=== PATIENT | female | born 1990 | race Caucasian/White ===

== ENCOUNTER → 2017-04-21 18:09 | Outpatient (REF) | payer MEDICAID, SELFPAY | LOC: LAB 18:09 | PROVIDERS: Visit Provider Nurse Practitioner Obstetrics & Gynecology | DX: Z34.90 Encounter for supervision of normal pregnancy, unspecified, unspecified trimester (principal) | CPT/HCPCS: 86403 ==

== ENCOUNTER 2017-05-18 05:24 | Inpatient (IN) | payer MEDICAID, SELFPAY ==
[2017-05-18] VITALS (10 sets, daily range): BP systolic 112–128; BP diastolic 57–69; PULSE 61–88; RESP 16–18; TEMP 36.3–36.9; O2SAT 97–100; BMI 28.3
[2017-05-18 06:09] LABS: Basophils # 0.1 K/mm3 (0-0.2); Basophils % 0.6 % (0.1-2.0); Eosinophils # 0.3 K/mm3 (0.0-0.4); Eosinophils % 2.3 % (0.1-12.0); Hematocrit 35.5 % (37.0-47.0); Hemoglobin 12.1 g/dL (12.2-16.2); Lymphocytes # 3.4 K/mm3 (0.7-4.5); Lymphocytes % 29.4 K/mm3 (10-50); Mean Corpuscular HGB Conc 34.2 g/dL (31.8-35.4); Mean Corpuscular Hemoglobin 28.6 pg (27.0-31.2); Mean Corpuscular Volume 83.6 fl (81-99); Mean Platelet Volume 7.8 fl (7.4-10.4); Monocytes # 0.8 K/mm3 (0.1-1.0); Monocytes % 6.8 % (1.7-9.3); Neutrophils # 7.1 K/mm3 (1.8-7.8); Neutrophils % 60.8 % (37.0-80.0); Platelet Count 285 K/mm3 (142-424); Red Blood Count 4.24 M/mm3 (4.20-5.40); Red Cell Distribution Width 13.2 % (11.5-17.5); White Blood Count 11.6 K/mm3 (4.8-10.8)
--- NOTE | 2017-05-18 07:02 | P.PN_ITS ---
[facility] Anesthesia Checklist - Patient Identification Patient Identification: Arm Band, Verbal (Name & ) - Structural Data Admitted From: Home Planned Operative Procedure/s: Consent for Planned Operative Procedure(s) Verified: Yes Verified Documents: Surgical Consent - NPO Status Verified Time NPO: 00:00 - Chart Verification Results Verified: CBC, BMP - Additional verifications Patient : No Anesthesia Reactions: No Hx Blood Transfusions: No Blood Transfusion Reaction: No Cephalosporin Allergy: No Previous Colonoscopy: No - Cardiovascular Assessment Heart Sounds: S1 & S2 Pulse Strength: Baseline Pulse Rhythm: Regular Peripheral Edema: No - Airway Assessment C-Spine Mobility Assessed: No TMJ Mobility Assessed: No Dentition: Poor Dentition - Neurological Assessment Level of Consciousness: Awake, Appropriate Hx Seizures: No Numbness or tingling in extremities: No - Anesthesia Plan Anesthesia Risk discussed: Yes Anesthesia Plan: Verified ASA Class: II Anesthesia Type: Spinal [facility] Anesthesia HX I have reviewed the patient's past medical history: Yes Medical History: Reports:: Asthma Denies:: Anxiety, Cancer, Depression, Diabetes Mellitus Type 1, Diabetes Mellitus Type 2, MRSA Other Surgeries: Yes: (X 2) Amputation: No Fractures: No *Family Hx:: Cancer, Diabetes
--- NOTE | 2017-05-18 07:33 | P.CONPHA_ITS ---
[facility] Pharmacy VTE Monitoring - Patient Demographics Admission date: 05/18/17 Report Date: 05/18/17 Time: 07:33 Allergies/Adverse Reactions: Patient Allergies No Known Allergies Allergy (Verified 04/21/17 10:10) Height: 1.63 m Weight: 74.843 kg - VTE Risk Labs: VTE Related Lab Results Hgb 12.1 g/dL (12.2-16.2) L 05/18/17 05:45 Hct 35.5 % (37.0-47.0) L 05/18/17 05:45 Plt Count 285 K/mm3 (142-424) 05/18/17 05:45 - Prophylaxis VTE Prophylaxis Ordered?: Yes Types of VTE Prophylaxis: IPCS Knee High Location of Applied Device: Bilateral Lower Extremeties - VTE Diagnosis Confirmed Treatment or plan recommended: Continue Current Treatment
[2017-05-18 08:08] LABS: Cord Blood PH 7.37 (7.35-7.45)
--- NOTE | 2017-05-18 08:16 | HMH.OPNOTE ---
Date of procedure: 05/18/17 Pre-op Diagnosis:: Term , previous section Post-op diagnosis:: same Procedure performed:: Repeat lower segment transverse section Surgeon:: Junior Hawkins MD Assistant Professor Of Psychology(s):: Madison Soto NET DEVELOPER CONSULTANT:: Keven Fairchild Anesthesia: spinal Estimated blood loss (mL): 600 Clinical Note:: She is a 27-year-old 3 para 2 who is 39 weeks gestational age. She has had 2 previous sections and as result of that was offered repeat lower segment transverse section at term. Risks and benefits of surgery were discussed with the patient her surgery. Operative findings:: She delivered a liveborn male child at 7:52 AM on the morning of May 18, 2017. The baby had Apgars of 9 at 1 minute and 10 at 5 minutes. Ovaries and tubes appeared normal. Operative note:: She was taken to the operating room where spinal anesthesia was found be adequate. She was prepped and draped in normal sterile fashion in the supine position with a leftward tilt. A Delgadillo catheter was in the bladder. A Pfannenstiel skin incision was made with knife then carried through to the underlying layer of fascia with cautery. The fascia was opened in the midline with cautery and extended laterally using Toth scissors. Chanda clamps were applied to the superior aspect of the fascial incision which was tented up and the underlying rectus muscles dissected off using cautery. The Wittenberg clamps were then applied to the inferior aspect of the fascial incision which in a similar fashion was tented up and the underlying rectus muscles dissected off using cautery. The rectus muscles were then in the midline, the peritoneum identified, and entered sharply with Metzenbaum scissors. This incision was then extended superiorly and inferiorly with cautery. We had good visualization of the bladder inferiorly. The bladder peritoneum was then opened in the midline and extended laterally using Metzenbaum scissors. A bladder flap was created digitally. The lower blade of the Alison was inserted so as to push the bladder out of the way. Transverse incision was made through the uterine muscle to the amnion. This incision was then extended laterally using fingers traction. The amnion was entered sharply with knife. The 's head was then delivered atraumatically. This was followed by the anterior shoulder and the rest of the 's body atraumatically. The oropharynx and nasopharynx were bulb suctioned. The was then handed off to Dr. mcgovern who assigned Apgars of 9 at 1 minute and 10 at 5 minutes. We then obtained cord blood as well as cord pH. The pH was 7.37. Using gentle traction on the cord and countertraction on the fundus I was able to easily deliver the placenta intact. It had a normal three-vessel cord. The uterus was then cleared of clots and debris and exteriorized from the abdominal cavity. The uterine incision was then closed using running 0 Vicryl suture in a locked fashion. A second layer of the same suture was used to imbricate the first layer. The bladder peritoneum was then closed using running 2-0 Vicryl suture in a locked fashion. The gutters and cul-de-sac were then cleared of clots and debris and the uterus was returned the abdominal cavity. Once again hemostasis was assured. The peritoneum was grasped with Harmony clamps and closed using running 2-0 Vicryl suture. The rectus muscles were then reapproximated using running 0 Vicryl suture. The fascia was closed using running #1 Vicryl suture. The subcutaneous tissues were then irrigated with warm water followed by closure Saad's fascia using running 2-0 Monocryl suture. The skin was closed with gavi. I then cleaned the skin once again with Hibiclens. Sterile dressings were applied. She tolerated the procedure well and was taken to the recovery room in excellent condition. All sponges minute and needle counts were correct. Estimate a blood loss was appr
--- NOTE | 2017-05-18 08:19 | P.OP_ITS ---
Date of procedure: 05/18/17 Pre-op Diagnosis:: Term , previous section Post-op diagnosis:: same Procedure performed:: Repeat lower segment transverse section Surgeon:: Junior Hawkins MD Electrical And Instrument Engineer(s):: Madison Soto PRESCHOOL LEAD TEACHER:: Keven Fairchild Anesthesia: spinal Estimated blood loss (mL): 600 Clinical Note:: She is a 27-year-old 3 para 2 who is 39 weeks gestational age. She has had 2 previous sections and as result of that was offered repeat lower segment transverse section at term. Risks and benefits of surgery were discussed with the patient her surgery. Operative findings:: She delivered a liveborn male child at 7:52 AM on the morning of May 18, 2017. The baby had Apgars of 9 at 1 minute and 10 at 5 minutes. Ovaries and tubes appeared normal. Operative note:: She was taken to the operating room where spinal anesthesia was found be adequate. She was prepped and draped in normal sterile fashion in the supine position with a leftward tilt. A Delgadillo catheter was in the bladder. A Pfannenstiel skin incision was made with knife then carried through to the underlying layer of fascia with cautery. The fascia was opened in the midline with cautery and extended laterally using Toth scissors. Chanda clamps were applied to the superior aspect of the fascial incision which was tented up and the underlying rectus muscles dissected off using cautery. The Kevil clamps were then applied to the inferior aspect of the fascial incision which in a similar fashion was tented up and the underlying rectus muscles dissected off using cautery. The rectus muscles were then in the midline, the peritoneum identified, and entered sharply with Metzenbaum scissors. This incision was then extended superiorly and inferiorly with cautery. We had good visualization of the bladder inferiorly. The bladder peritoneum was then opened in the midline and extended laterally using Metzenbaum scissors. A bladder flap was created digitally. The lower blade of the Alison was inserted so as to push the bladder out of the way. Transverse incision was made through the uterine muscle to the amnion. This incision was then extended laterally using fingers traction. The amnion was entered sharply with knife. The 's head was then delivered atraumatically. This was followed by the anterior shoulder and the rest of the 's body atraumatically. The oropharynx and nasopharynx were bulb suctioned. The was then handed off to Dr. mcgovern who assigned Apgars of 9 at 1 minute and 10 at 5 minutes. We then obtained cord blood as well as cord pH. The pH was 7.37. Using gentle traction on the cord and countertraction on the fundus I was able to easily deliver the placenta intact. It had a normal three-vessel cord. The uterus was then cleared of clots and debris and exteriorized from the abdominal cavity. The uterine incision was then closed using running 0 Vicryl suture in a locked fashion. A second layer of the same suture was used to imbricate the first layer. The bladder peritoneum was then closed using running 2-0 Vicryl suture in a locked fashion. The gutters and cul-de-sac were then cleared of clots and debris and the uterus was returned the abdominal cavity. Once again hemostasis was assured. The peritoneum was grasped with Harmony clamps and closed using running 2-0 Vicryl suture. The rectus muscles were then reapproximated using running 0 Vicryl suture. The fascia was closed using running #1 Vicryl suture. The subcutaneous tissues were then irrigated with warm water followed by closure Saad's fascia using running 2-0 Monocryl suture. The skin was closed wit
--- NOTE | 2017-05-18 08:24 | P.PN_ITS ---
[facility] Anesthesia Record Part I Intake, IV Amount: 1,800 Estimated blood loss (mL): 600 Urine output (mL): 175 Blood Products used (#): none Blood Pressure: 116/63 SaO2: 97 Pulse Rate: 75 Respiratory Rate: 18 Temperature: 98.4 F Patient is:: Awake, Stable Stable to PACU at:: 08:22
--- NOTE | 2017-05-18 08:25 | P.PN_ITS ---
[facility] Anesthesia Record Part II Discharge Time: 08:52 Destination: Obstetric Gynecology Dept PACU nurse assessment reviewed?: Yes Patient Condition:: Good Anesthesia Complications:: None
[2017-05-18 08:36] LABS: Microscopic,Cath URINE MICROSCOPIC (MICROSCOPIC)
[2017-05-18 08:37] LABS: Appearance,Urine/Cath CLEAR (Clear); Bilirubin,Cath Negative (Negative); Blood, Urine/Cath 1+ (Negative); Color,Urine/Cath YELLOW (Yellow); Glucose,Urine/Cath (UA) Negative (Negative); Ketones,Urine/Cath 2+ (Negative); Leukocyte Esterase,Cath Negative (Negative); Nitrate,Cath Negative (Negative); PH,Urine/Cath 6.5 (5.0-8.5); Protein,Urine/Cath Negative (Negative); Specific Gravity, Urine/Cath 1.015 (1.005-1.030)
[2017-05-18 08:45] LABS: Bacteria,Urine/Cath TRACE /lpf; Squamous Epithelial Ur./Cath Occasional #/hpf (0-5)
--- NOTE | 2017-05-18 08:56 | SUR.OPER ---
u/o from f/c was 175 ml
--- NOTE | 2017-05-18 09:10 | PC.NURSE ---
0832-pt eating ice chips w/out difficulty
--- NOTE | 2017-05-18 09:12 | PC.NURSE ---
0842-Laurie care performed at this time. Chux and laurie pad changed w/care. Pt assisted as tolerated.
--- NOTE | 2017-05-18 09:20 | PC.NURSE ---
0850-detailed report called to MARIA C Lerma. Pt continues to eat ice chips w/out difficulty. 0852-Pt transported to OB department room 277 via hospital bed w/rails up per MARIA C Gresham and MARIA C Early. Pt left in care of MARIA C Lerma and MARIA C Monson w/bed locked in lowest position. VSS. Family at bedside. Pt stable.
[2017-05-19 05:11] VITALS: BP 124/60; PULSE 73; RESP 16; TEMP 36.8
[2017-05-19 06:55] LABS: Basophils % 0.3 % (0.1-2.0); Eosinophils # 0.3 K/mm3 (0.0-0.4); Eosinophils % 2.1 % (0.1-12.0); Hematocrit 34.1 % (37.0-47.0); Hemoglobin 11.1 g/dL (12.2-16.2); Lymphocytes # 2.4 K/mm3 (0.7-4.5); Lymphocytes % 19.1 K/mm3 (10-50); Mean Corpuscular HGB Conc 32.4 g/dL (31.8-35.4); Mean Corpuscular Hemoglobin 27.9 pg (27.0-31.2); Mean Corpuscular Volume 85.9 fl (81-99); Mean Platelet Volume 7.6 fl (7.4-10.4); Monocytes # 0.9 K/mm3 (0.1-1.0); Monocytes % 6.9 % (1.7-9.3); Neutrophils % 71.6 % (37.0-80.0); Platelet Count 275 K/mm3 (142-424); Red Blood Count 3.97 M/mm3 (4.20-5.40); Red Cell Distribution Width 13.2 % (11.5-17.5); White Blood Count 12.6 K/mm3 (4.8-10.8)
[2017-05-19 08:00] VITALS: BP 101/64; PULSE 74; RESP 16; TEMP 36.6; O2SAT 98
--- NOTE | 2017-05-19 08:25 | P.PN_ITS ---
Internal Medicine - PN: Subj *Date: 05/19/17 *Time: 08:24 Interval history: She is doing very well this morning. She is eating and drinking and ambulating. She is bottlefeeding. Her lochia is normal. Exam Vital signs and Labs for Last 24 Hours: Temp Pulse Resp BP Pulse Ox 98.2 F 73 16 124/60 98 05/19/17 05:11 05/19/17 05:11 05/19/17 05:11 05/19/17 05:11 05/18/17 16:00 Laboratory Results - last 24 hr 05/18/17 07:35: Urine Color Yellow, Urine Appearance Clear, Urine pH 6.5, Ur Specific [place] 1.015, Urine Protein Negative, Urine Glucose (UA) Negative, Urine Ketones 2+, Urine Blood 1+, Urine Nitrate Negative, Urine Bilirubin Negative, Urine Urobilinogen 4.0, Ur Leukocyte Esterase Negative, Urine RBC 3-5 , Urine WBC 3-5, Ur Squamous Epith Cells Occasional, Urine Bacteria Trace 05/19/17 06:45: WBC 12.6 H, RBC 3.97 L, Hgb 11.1 L, Hct 34.1 L, MCV 85.9, MCH 27.9, MCHC 32.4, RDW 13.2, Plt Count 275, MPV 7.6, Neut % (Auto) 71.6, Lymph % ( Auto) 19.1, [place] % (Auto) 6.9, Eos % (Auto) 2.1, Baso % (Auto) 0.3, Neut # (Auto ) 9.0 H, Lymph # (Auto) 2.4, [place] # (Auto) 0.9, Eos # (Auto) 0.3, Baso # (Auto) 0.0 I & O for Last 24 hours: Intake & Output 05/16/17 05/17/17 05/18/17 05/19/17 11:59 11:59 11:59 11:59 Intake Total 1974 2200 / 2200 Output Total 1800 / 1800 Balance 1949 / 1949 400 / 400 Weight 165 lb - Constitutional no acute distress Assessment and Plan - Assessment and plan all Dx Assessment and Plan for all problems:: She continues to do very well. We will plan to send her home in 48 hours.
[2017-05-19 12:00] VITALS: BP 111/51; PULSE 67; RESP 16; TEMP 37; O2SAT 98
[2017-05-19 16:00] VITALS: BP 107/59; PULSE 72; RESP 18; TEMP 36.6; O2SAT 98
[2017-05-19 19:45] VITALS: BP 113/71; PULSE 66; RESP 18; TEMP 36.8; O2SAT 97
--- NOTE | 2017-05-20 08:23 | P.HP_ITS ---
OB - H&P: HPI Antepartum - History of Present Illness Chief complaint: Term previous section - History of Present Criteria for establishing EDC:: LMP confirmed by 1st trimester US care: good care Ultrasounds: normal 1st trimester US, normal mid trimester US Obstetrical complications: none Planning to breastfeed?: No [facility] History I have reviewed the patient's past medical history: Yes Medical History: Reports:: Asthma Denies:: Anxiety, Cancer, Depression, Diabetes Mellitus Type 1, Diabetes Mellitus Type 2, MRSA, Seizures Other Medical History: Denies: Blood Transfusion Reaction Other Surgeries: Yes: (X 2) Amputation: No Fractures: No - *Social History Educational Level: Completed High School Smoking Status: Never smoker Alcohol Intake: never Substance Use Type: denies use Occupational Status: employed - Psychiatric History Expresses thoughts of harming self/others: None Suicide Plan Description: No Plan Pschychiatric History:: Denies:: Anxiety, Depression *Family Hx:: Cancer, Diabetes PRINCIPAL NETWORK ARCHITECT history: Spontaneous Para: 2 Review of Systems - Review of Systems Review of systems:: pertinent systems reviewed and negative unless documented below Meds Home Medications Medication Instructions Recorded Confirmed Type ferrous sulfate 325 mg (65 mg 325 mg PO TID tab 04/07/17 05/18/17 History iron) tablet [id number] 1 tab PO DAILY 04/07/17 05/18/17 History tablet Allergies Allergy/AdvReac Type Severity Reaction Status Date / Time No Known Allergies Allergy Verified 04/21/17 10:10 OB - H&P: Exam - Physical Exam Vital signs: Temp Pulse Resp BP Pulse Ox 98.3 F 66 18 113/71 97 05/19/17 19:45 05/19/17 19:45 05/19/17 19:45 05/19/17 19:45 05/19/17 19:45 - Constitutional no acute distress OB - A/P Antepartum - Additional Plan Plan: other (She is a 3 para 2 whose had a previous section. As result of that we will do a repeat lower segment transverse section at term.) Planning to breastfeed?: No
--- NOTE | 2017-05-20 08:35 | HMH.ACPN2 ---
Internal Medicine - PN: Subj *Date: 05/20/17 *Time: 08:35 Interval history: She is doing well this morning. She is eating and drinking and ambulating. She is bottlefeeding. Her lochia is normal. Her incision is clean and dry. Exam Vital signs and Labs for Last 24 Hours: Temp Pulse Resp BP Pulse Ox 98.3 F 66 18 113/71 97 05/19/17 19:45 05/19/17 19:45 05/19/17 19:45 05/19/17 19:45 05/19/17 19:45 I & O for Last 24 hours: Intake & Output 05/17/17 05/18/17 05/19/17 05/20/17 11:59 11:59 11:59 11:59 Intake Total 1974 / 1974 2200 / 2200 Output Total 1800 / 1800 Balance 1949 / 1949 400 / 400 Weight 165 lb - Constitutional no acute distress Assessment and Plan (1) Status post repeat low transverse section Current visit: Yes Status: Acute Category: Surgical Code(s): Z98.891 - History of uterine scar from previous surgery - Assessment and plan all Dx Assessment and Plan for all problems:: She is doing well this morning. She does complain of a mild headache. It seems to be positional. If she is not getting better by later this afternoon with hydration and caffeine we will have her seen by anesthesia for a possible blood patch. We will plan to send her home tomorrow.
[2017-05-21 08:00] VITALS: BP 106/55; PULSE 74; RESP 16; TEMP 36.6; O2SAT 98
--- NOTE | 2017-05-21 08:02 | HMH.DCSUM ---
General - General Admission date: 05/18/17 Discharge date: 05/21/17 HPI HPI: She is a 27-year-old 3 now para 3 who is 39 weeks gestational age. She has had 2 previous sections and as result of that was offered repeat lower segment transverse section at term. Hospital Course Hospital Course: On May 18, 2017 she underwent a repeat lower segment transverse section and delivered a liveborn male child at 7:52 AM on the morning of May 18, 2017. The baby weighed 7 lbs. 5 oz. and was 18-1/2 inches long. He had Apgars of 9 at 1 minute and 10 at 5 minutes. She has done well and has remained afebrile throughout her hospitalization. She is eating and drinking and ambulating. She is bottlefeeding. Her lochia is normal. She has O+ blood, she is rubella nonimmune and she will receive MMR this morning. She was group A streptococcus positive. She will be discharged home to follow-up with me in 2 weeks time. Objective Vital signs: Temp Pulse Resp BP Pulse Ox 98.3 F 66 18 113/71 97 05/19/17 19:45 05/19/17 19:45 05/19/17 19:45 05/19/17 19:45 05/19/17 19:45 no acute distress DS: Diagnosis - Discharge Diagnosis (1) Status post repeat low transverse section Status: Acute Discharge Plan - Patient Discharge Instructions ACTIVITY: No heavy lifting DIET: continue same diet - Follow up Plan Disposition: Home, Self-Alf Medications: Home Medications Medication Instructions Recorded Confirmed Type ferrous sulfate 325 mg (65 mg 325 mg PO TID tab 04/07/17 05/18/17 History iron) tablet [id number]-[id number]-[id number]-FA 1 tab PO DAILY 04/07/17 05/18/17 History tablet Prescriptions/Medication Reconciliation: Continue ferrous sulfate 325 mg (65 mg iron) tablet 325 mg PO TID tab [id number] tablet 1 tab PO DAILY
--- NOTE | 2017-05-21 08:05 | P.DS_ITS ---
General - General Admission date: 05/18/17 Discharge date: 05/21/17 HPI HPI: She is a 27-year-old 3 now para 3 who is 39 weeks gestational age. She has had 2 previous sections and as result of that was offered repeat lower segment transverse section at term. Hospital Course Hospital Course: On May 18, 2017 she underwent a repeat lower segment transverse section and delivered a liveborn male child at 7:52 AM on the morning of May 18, 2017. The baby weighed 7 lbs. 5 oz. and was 18-1/2 inches long. He had Apgars of 9 at 1 minute and 10 at 5 minutes. She has done well and has remained afebrile throughout her hospitalization. She is eating and drinking and ambulating. She is bottlefeeding. Her lochia is normal. She has O+ blood, she is rubella nonimmune and she will receive MMR this morning. She was group A streptococcus positive. She will be discharged home to follow-up with me in 2 weeks time. Objective Vital signs: Temp Pulse Resp BP Pulse Ox 98.3 F 66 18 113/71 97 05/19/17 19:45 05/19/17 19:45 05/19/17 19:45 05/19/17 19:45 05/19/17 19:45 no acute distress DS: Diagnosis - Discharge Diagnosis (1) Status post repeat low transverse section Status: Acute Discharge Plan - Patient Discharge Instructions ACTIVITY: No heavy lifting DIET: continue same diet - Follow up Plan Disposition: Home, Self-Snf Medications: Home Medications Medication Instructions Recorded Confirmed Type ferrous sulfate 325 mg (65 mg 325 mg PO TID tab 04/07/17 05/18/17 History iron) tablet [id number]-[id number]-Fe-FA 1 tab PO DAILY 04/07/17 05/18/17 History tablet Prescriptions/Medication Reconciliation: Continue ferrous sulfate 325 mg (65 mg iron) tablet 325 mg PO TID tab [id number] tablet 1 tab PO DAILY
== END 2017-05-21 11:40 | disposition home or self-care (01) | DRG 766 ==
PROVIDERS: Admitting Provider Nurse Practitioner Obstetrics & Gynecology; Family Provider Nurse Anesthetist, Certified Registered; PCP Family Medicine; Visit Provider Nurse Practitioner Obstetrics & Gynecology
PROC: 10D00Z1 Extraction of Products of Conception, Low, Open Approach (ICD-10-PCS; CPT 59514; principal; 2017-05-18 07:30)
DX: O65.4 Obstructed labor due to fetopelvic disproportion, unspecified (principal); O34.211 Maternal care for low transverse scar from previous cesarean delivery; Z37.0 Single live birth; Z3A.39 39 weeks gestation of pregnancy
CPT/HCPCS: 59514; 59025; 81001; 82800; 85014; 85018; 85025; 86850; 90707; J2405

== ENCOUNTER → 2018-11-30 08:45 | Outpatient (CLI) | payer MEDICAID, SELFPAY ==
[2018-11-30 10:49] LABS: HCG,Quantitative 169 mIU/mL
== END ==
PROVIDERS: Visit Provider Student in an Organized Health Care Education/Training Program
DX: Z32.01 Encounter for pregnancy test, result positive (principal)
CPT/HCPCS: 36415; 84702

== ENCOUNTER → 2018-12-02 08:38 | Outpatient (CLI) | payer MEDICAID, SELFPAY ==
[2018-12-02 10:34] LABS: HCG,Quantitative 496 mIU/mL
== END ==
PROVIDERS: Visit Provider Student in an Organized Health Care Education/Training Program
DX: Z32.01 Encounter for pregnancy test, result positive (principal)
CPT/HCPCS: 36415; 84702

== ENCOUNTER → 2021-04-11 13:31 | Outpatient (CLI) | payer MEDICAID, SELFPAY | PROVIDERS: Visit Provider Nurse Practitioner | DX: U07.1 COVID-19 (principal) | CPT/HCPCS: C9803; U0003; U0005 ==

== ENCOUNTER 2023-06-13 08:25 | Emergency (ER) | payer MEDICAID, SELFPAY ==
[2023-06-13 08:30] VITALS: BMI 25.0
[2023-06-13 08:32] VITALS: BP 128/83; PULSE 68; RESP 18; TEMP 36.6; O2SAT 100; BMI 30.4
[2023-06-13 08:36] LABS: Microscopic, Urine URINE MICROSCOPIC (MICROSCOPIC)
[2023-06-13 08:38] LABS: Appearance,Urine SL CLOUDY (Clear); Bilirubin,Urine Negative (Negative); Blood, Urine 3+ (Negative); Color,Urine YELLOW (Yellow); Glucose,Urine (UA) Negative (Negative); Ketones,Urine Negative (Negative); Leukocyte Esterase,Urine Negative (Negative); Nitrate,Urine Negative (Negative); Protein,Urine TRACE (Negative); Specific Gravity, Urine >= 1.030 (1.005-1.030); Urobilinogen,Urine 0.2 EU/dl (0.2)
--- NOTE | 2023-06-13 08:38 | PC.NURSE ---
Dr. Eagle at [facility] for pt eval
[2023-06-13 08:39] LABS: Urine Pregnancy, HCG Qual. Negative (Negative)
--- NOTE | 2023-06-13 08:40 | CT_ITS ---
PROCEDURE INFORMATION: Exam: CT Abdomen And Pelvis With Contrast Exam date and time: 06/13/2023 8:56 AM Age: 33 years old Clinical indication: Abdominal pain; Localized; Right lower quadrant (rlq); Additional info: Rlq abd pain TECHNIQUE: Imaging protocol: Computed tomography of the abdomen and pelvis with contrast. Radiation optimization: All CT scans at this facility use at least one of these dose optimization techniques: automated exposure control; mA and/or kV adjustment per patient size (includes targeted exams where dose is matched to clinical indication); or iterative reconstruction. Contrast material: ISOVUE; Contrast volume: 75 ml; Contrast route: IV; COMPARISON: [facility] US PREG COMP 01/13/2017 1:40 PM FINDINGS: Liver: Normal. No mass. Gallbladder and bile ducts: Normal. No calcified stones. No ductal dilation. Pancreas: Normal. No ductal dilation. Spleen: Normal. No splenomegaly. Adrenal glands: Normal. No mass. Kidneys and ureters: Mild right obstructive uropathy with calculus in the distal right ureter measuring 6 x 6 mm. No left hydronephrosis. Stomach and bowel: Unremarkable. No obstruction. No mucosal thickening. Appendix: No evidence of appendicitis. Intraperitoneal space: Unremarkable. No free air. No significant fluid collection. Vasculature: Unremarkable. No abdominal aortic aneurysm. Lymph nodes: Unremarkable. No enlarged lymph nodes. Urinary bladder: Unremarkable as visualized. Reproductive: Unremarkable as visualized. Bones/joints: Unremarkable. No acute fracture. Soft tissues: Unremarkable. IMPRESSION: Mild right obstructive uropathy with calculus in the distal right ureter measuring 6 x 6 mm.
--- NOTE | 2023-06-13 08:42 | HMH.EDGENADL ---
Discharge Plan Disposition Patient Disposition: Home, Self-Care Prescriptions Prescriptions: New ibuprofen 800 mg tablet 800 mg PO TID PRN (Reason: pain) 7 Days Qty: 20 0RF hydrocodone-acetaminophen 5-325 mg tablet 1 tab PO Q6H PRN (Reason: pain) 3 Days Qty: 12 0RF tamsulosin [Flomax] 0.4 mg capsule 0.4 mg PO DAILY 7 Days Qty: 7 0RF ondansetron 4 mg tablet,disintegrating 4 mg PO Q6H PRN (Reason: nausea and vomiting) 5 Days Qty: 20 0RF No Action triamcinolone acetonide 0.1 % ointment 1 applic TOPICAL TID Qty: 30 2RF Rx Instructions: Apply to affected area 3 times daily ferrous sulfate 325 mg (65 mg iron) tablet 325 mg PO TID prenat.vits,dimitris,jve-goww-nwuub tablet 1 tab PO DAILY medroxyprogesterone [Depo-Provera] 150 mg/mL suspension 150 mg IM [id number] Qty: 1 3RF Referrals Follow up/Referrals: Inocente Raza MD [Staff Physician] - See instructions Karie Castaneda APRN [Primary Care Provider] - See instructions Activity Restrictions/Add. Instructions Additional Instructions/Restrictions: You have a 7 mm distal ureteral obstructing stone. You have associated hydronephrosis and hydroureter. It is possible that your stone will not pass if you have refractory pain I recommend that you go to an emergency department that has urology coverage as discussed. Please take your disc with CT images if you do end up going there. You can always return to our emergency department and we can transfer if that is the case as well. Other reasons to seek emergency care would be a high fever. If your pain is tolerable but not completely resolved I recommend that you follow-up with her urologist Dr. Raza and a referral has been made. Clinical Impressions Clinical Impression: Hydronephrosis concurrent with and due to calculi of kidney and ureter Instructions Patient Instructions: DI for Acute Abdominal Pain Discharge ED Provider: Miguel Eagle General Adult HPI General Chief complaint: Abdominal Pain Stated complaint: bottom right abd pain right lower back pain nausea Time Seen by Provider: 06/13/23 08:35 Mode of Arrival: Ambulatory Source of Information: Patient Limitations: No Limitations Description of Symptoms (Recalled from ER Triage Doc. by RN): abdomninal pain for the last five days. gets worse History of Present Illness HPI narrative: Megan is a 33-year-old female presents today with right lower quadrant abdominal pain. This began on Thursday its been intermittent worsened on improved and then she woke up this morning with severe pain. She states it radiates into her lower back. No history of kidney stones no hematuria that she is aware of no frequency urgency dysuria. Last period was in March but she has been irregular and has a history of a tubal ligation. No vaginal bleeding vaginal discharge constipation or diarrhea. Related Data Home Medications Medication Instructions Recorded Confirmed ferrous sulfate 325 mg (65 mg 325 mg PO TID Supplement 04/07/17 05/18/17 iron) tablet prenat.vits,dimitris,[id number]-[id number] 1 tab PO DAILY Supplement 04/07/17 05/18/17 Previous Rx's Medication Instructions Recorded triamcinolone acetonide 0.1 % 1 applic topical TID rash #30 grams 06/01/17 topical ointment medroxyprogesterone 150 mg/mL 150 mg IM [id number] #1 mL 07/23/17 intramuscular suspension (Depo-Provera) hydrocodone 5 mg-acetaminophen 325 1 tab PO Q6H PRN pain 3 days #12 06/13/23 mg tablet tabs ibuprofen 800 mg tablet 800 mg PO TID PRN pain 7 days #20 06/13/23 tabs ondansetron 4 mg disintegrating 4 mg PO Q6H PRN nausea and 06/13/23 tablet vomiting 5 days #20 tabs tamsulosin 0.4 mg capsule (Flomax) 0.4 mg PO DAILY 7 days #7 caps 06/13/23 Allergies Allergy/AdvReac Type Severity Reaction Status Date / Time No Known Allergies Allergy Verified 06/01/17 13:49 [facility] Disclaimer: The information contained in this section may have been updated after the patient was seen, as this information can be updated by other users. Social History Smoking Status: Never smoker alcohol intake: never substance use type: denies use current occupational status: employed Travel in the last 8 weeks: None current occupational exposures/hazards: No ROS Obtained: Yes All systems reviewed & no additional complaints except as documented Physical Exam General General appearance: alert and in no apparent distress Respiratory Respiratory exam: Present normal lung sounds bilaterally Cardiovascular Cardiovascular exam: Present regular rate and normal rhythm Abdominal Exam Abdominal exam: Present soft, distention and tenderness (With the palpation there is mild tenderness in the right lower quadrant) Back Exam Back exam: Absent CVA tenderness (R) or CVA tenderness (L) Neurological Exam Neurological exam: Present alert and oriented X3 Medical Decision Making Toro Inquiry Pt receiving controlled substance: No Vital Signs: 06/13/23 08:32 06/13/23 09:01 06/13/23 09:30 Temperature 97.9 F Temperature Source Oral Pulse Rate 66 82 Pulse Rate [Right Radial] 68 Respiratory Rate 18 18 18 Blood Pressure 125/65 131/69 Blood Pressure [Right Arm] 128/83 Blood Pressure Mean 85 89 Blood Pressure Mean [Right Arm] 98 02 Sat by Pulse Oximetry 100 100 99 Oxygen Delivery Method Room Air Lab Data Lab results reviewed: Yes I reviewed the patient's lab results. Lab Results 06/13/23 08:30: Urine Color Yellow, Urine Appearance Sl cloudy, Urine pH 6.0, Ur Specific [place] >= 1.030, Urine Protein Trace, Urine Glucose (UA) Negative, Urine Ketones Negative, Urine Blood 3+, Urine Nitrate Negative, Urine Bilirubin Negative, Urine Urobilinogen 0.2, Ur Leukocyte Esterase Negative, Urine RBC 10-20, Urine WBC None, Ur Squamous Epith Cells 5-10, Urine Bacteria 2+, Urine Mucus Trace, Urine HCG, Qual Negative 06/13/23 08:42: WBC 8.5, RBC 5.02, Hgb 15.1, Hct 45.3, MCV 90.3, MCH 30.1, MCHC 33.3, RDW 13.2, Plt Count 303, MPV 8.1, Neut % (Auto) 60.6, Lymph % (Auto) 22.1, [place] % (Auto) 3.7, Eos % (Auto) 12.2 H, Baso % (Auto) 1.4, Neut # (Auto) 5.1, Lymph # (Auto) 1.9, [place] # (Auto) 0.3, Eos # (Auto) 1.0 H, Baso # (Auto) 0.1, Sodium 139, Potassium 4.1, Chloride 105, Carbon Dioxide 32 H, Anion Gap 6.1, BUN 12, Creatinine 1.00, Estimated Creat Clear 102, Estimated GFR 64, Est GFR ( Amer) 78, Glucose 112 H, Calcium 9.3, Total Bilirubin 0.4, AST 26, ALT 22, Alkaline Phosphatase 87, Total Protein 7.5, Albumin 4.4, Globulin 3.1, Albumin/Globulin Ratio 1.4 06/13/23 08:42 06/13/23 08:42 Orders (Tests/Meds): ED MEDICATIONS Generic Name Dose Route Start Last Admin Trade Name Freq PRN Reason Stop Dose Admin Lactated Ringer's 1,000 mls @ 999 mls/hr 06/13/23 08:45 06/13/23 09:04 Lactated Ringer's 1000 Ml Bag IV 06/13/23 09:45 999 mls/hr .Q1H1M NAZARIO Administration Sodium Chloride 10 ml 06/13/23 08:46 Sodium Chloride 0.9% 10ml Flush Syringe IV 07/13/23 08:45 NEEDED PRN Maintain IV Site Discontinued Medications Generic Name Dose Route Start Last Admin Trade Name Freq PRN Reason Stop Dose Admin Iopamidol 75 ml 06/13/23 09:09 Iopamidol-370 (76%);100ml Bottle IV 06/13/23 09:10 ONCE ONE Morphine Sulfate 4 mg 06/13/23 08:40 06/13/23 09:04 Morphine 4mg/Ml Syringe IV 06/13/23 08:41 4 mg ONCE ONE Administration Ondansetron HCl 4 mg 06/13/23 08:40 06/13/23 09:04 Ondansetron 4mg/2ml Vial IV 06/13/23 08:41 4 mg ONCE ONE Administration Sodium Chloride 10 ml 06/13/23 09:09 Sodium Chloride 0.9% 10ml Syr (Rad Only) IV 06/13/23 09:10 ONCE ONE ORDERS Category Date Time Status CT abdomen pelvis w con Stat Cat Scan 06/13/23 08:40 Completed CBC w/Auto Diff [Complete Blood Count Auto Diff] Stat Lab 06/13/23 08:42 Completed CMP [Comprehensive Metabolic Panel] Stat Lab 06/13/23 08:42 Completed UA [Urinalysis and Microscopic] Stat Lab 06/13/23 08:30 Completed Urine , HCG Qual. Stat Lab 06/13/23 08:30 Completed Urine Culture Stat Micro 06/13/23 08:30 Received Medical Decision Narrative: Well-appearing 33-year-old female presents today with right lower quadrant abdominal pain. Her abdominal exam is not impressive and her pain is out of proportion to the exam. She does have some very mild tenderness however her urinalysis was performed quickly prior to my evaluation and she does have some hematuria which suggest that this may be a kidney stone. Other things in the differential would include intermittent ovarian torsion, terminal ileitis, mesenteric adenitis appendicitis etc. Will get a contrasted CT scan to further evaluate this. IV fluids pain medicine nausea medicine have been administered and reassess. Reassessment 945 patient's pain has completely resolved. No evidence of sepsis or urinary tract infection. CT scan performed which I personally interpreted which shows a 7 mm distal ureteral stone with associated hydronephrosis and hydroureter. Given the size of this it is possible this will not pass. We will try a trial of passage and give her symptomatic medications to go home with a referral to our urologist has been made. We have also printed a disc with CT images and the event that she needs to follow-up with refractory pain to another hospital as I discussed with her we do not have 13/10 urology coverage I discussed with the hospitals that do. She can always return here and we can transfer the patient if she chooses to do so. Patient was discharged in stable condition. Critical Care Critical Care Time Critical Care Time: No
[2023-06-13 08:50] LABS: Bacteria,Urine 2+ /lpf; Mucus,Urine Trace /lpf
--- NOTE | 2023-06-13 08:50 | PC.NURSE ---
pt to ct scan
[2023-06-13 08:58] LABS: Basophils # 0.1 K/mm3 (0-0.2); Basophils % 1.4 % (0.1-2.0); Eosinophils % 12.2 % (0.1-12.0); Hematocrit 45.3 % (37.0-47.0); Hemoglobin 15.1 g/dL (12.2-16.2); Lymphocytes # 1.9 K/mm3 (0.7-4.5); Lymphocytes % 22.1 % (10-50); Mean Corpuscular HGB Conc 33.3 g/dL (31.8-35.4); Mean Corpuscular Hemoglobin 30.1 pg (27.0-31.2); Mean Corpuscular Volume 90.3 fl (81-99); Mean Platelet Volume 8.1 fl (7.4-10.4); Monocytes # 0.3 K/mm3 (0.1-1.0); Monocytes % 3.7 % (1.7-9.3); Neutrophils # 5.1 K/mm3 (1.8-7.8); Neutrophils % 60.6 % (37.0-80.0); Platelet Count 303 K/mm3 (142-424); Red Blood Count 5.02 M/mm3 (4.20-5.40); Red Cell Distribution Width 13.2 % (11.5-17.5); White Blood Count 8.5 K/mm3 (4.8-10.8)
--- NOTE | 2023-06-13 09:00 | PC.NURSE ---
pt back from ct scan
[2023-06-13 09:01] VITALS: BP 125/65; PULSE 66; RESP 18; O2SAT 100
[2023-06-13 09:04] LABS: Chloride 105 mmol/L (98-107); Potassium 4.1 mmoL/L (3.5-5.1); Sodium 139 mmol/L (136-145)
[2023-06-13] MEDS: MORPHINE 4MG/ML SYRINGE 4 MG IV (09:04)
[2023-06-13] MEDS: LACTATED RINGERS 1000ML 1,000 ML 999 ML IV (09:04)
[2023-06-13] MEDS: ONDANSETRON 4MG/2ML VIAL 4 MG IV (09:04)
[2023-06-13 09:07] LABS: Alanine Aminotransferase 22 U/L (12-78); Albumin Level 4.4 g/dl (3.5-5.0); Albumin/Globulin Ratio 1.4 (1.1-1.8); Alkaline Phosphatase 87 U/L (38-126); Anion Gap 6.1 mEq/L (5-15); Aspartate Amino Transferase 26 U/L (14-36); Bilirubin,Total 0.4 mg/dl (0.2-1.3); Blood Urea Nitrogen 12 mg/dl (7-17); Carbon Dioxide 32 mmol/L (22.0-30.0); Creatinine Clearance Estimated 102 mL/min (50-200); Estimated Glomerular Filt Rate 64 ml/min (>60); GFR (African American) 78 ML/MIN (>60); Globulin 3.1 g/dL (1.3-3.2); Total Protein,Serum 7.5 g/dl (6.3-8.2)
[2023-06-13 09:08] LABS: Calcium 9.3 mg/dl (8.4-10.2); Glucose 112 mg/dl (74-100)
[2023-06-13 09:30] VITALS: BP 131/69; PULSE 82; RESP 18; O2SAT 99
[2023-06-13 09:57] VITALS: BP 131/69; PULSE 82; RESP 18; TEMP 36.6; O2SAT 99
== END 2023-06-13 09:58 | disposition home or self-care (01) ==
PROVIDERS: Emergency Provider Student in an Organized Health Care Education/Training Program; PCP Nurse Practitioner Family
DX: N13.2 Hydronephrosis with renal and ureteral calculous obstruction (principal); R10.31 Right lower quadrant pain; B96.89 Other specified bacterial agents as the cause of diseases classified elsewhere
CPT/HCPCS: 74177; 80053; 81001; 81025; 85025; 87086; 96361; 96374; 96375; 99285; J2405

== ENCOUNTER 2023-06-14 11:13 | Emergency (ER) | payer MEDICAID, SELFPAY ==
[2023-06-14] VITALS (7 sets, daily range): BP systolic 119–134; BP diastolic 52–93; PULSE 56–63; RESP 14–18; TEMP 36.6–36.8; O2SAT 98–99; BMI 30.4
--- NOTE | 2023-06-14 11:15 | PC.NURSE ---
Dr. Eagle at bedside with u/s
--- NOTE | 2023-06-14 11:27 | HMH.EDGENADL ---
Discharge Plan Disposition Patient Disposition: Home, Self-Care Prescriptions Prescriptions: No Action triamcinolone acetonide 0.1 % ointment 1 applic TOPICAL TID Qty: 30 2RF Rx Instructions: Apply to affected area 3 times daily ferrous sulfate 325 mg (65 mg iron) tablet 325 mg PO TID prenat.vits,dimitris,yck-jxxo-yxbph tablet 1 tab PO DAILY medroxyprogesterone [Depo-Provera] 150 mg/mL suspension 150 mg IM [id number] Qty: 1 3RF ibuprofen 800 mg tablet 800 mg PO TID PRN (Reason: pain) 7 Days Qty: 20 0RF hydrocodone-acetaminophen 5-325 mg tablet 1 tab PO Q6H PRN (Reason: pain) 3 Days Qty: 12 0RF tamsulosin [Flomax] 0.4 mg capsule 0.4 mg PO DAILY 7 Days Qty: 7 0RF ondansetron 4 mg tablet,disintegrating 4 mg PO Q6H PRN (Reason: nausea and vomiting) 5 Days Qty: 20 0RF Referrals Follow up/Referrals: Karie Castaneda APRN [Primary Care Provider] - See instructions Activity Restrictions/Add. Instructions Additional Instructions/Restrictions: Discussed you have a 7 mm distal ureteral stone at the [facility]. We called multiple hospitals and ultimately spoke with Dr. Hernandez who is a urologist with the [facility]. He took down your information they will call you first thing in the morning it is important that you only drink water tomorrow with no food until you hear from them in the morning. If for some reason that you do not hear something by noon please call our emergency department and we will investigate further. He is planning on scheduling an outpatient operation which she states will be much more expeditious than being transferred which we discussed. Clinical Impressions Clinical Impression: Hydronephrosis concurrent with and due to calculi of kidney and ureter Instructions Patient Instructions: DI for Acute Abdominal Pain Discharge ED Provider: Miguel Eagle General Adult HPI General Chief complaint: Abdominal Pain Stated complaint: lack of urination back/abd pain Time Seen by Provider: 06/14/23 11:16 History of Present Illness HPI narrative: Patient is a 33-year-old female presents today with recurrent and worsening symptoms after diagnosis of a kidney stone yesterday. She was diagnosed with a distal ureteral stone that was 7 mm causing hydroureter and hydronephrosis on the right side. She was given prescription of [place] ibuprofen Flomax and Zofran. She was able to get all of her medicines filled except the [place] which she was told needed another prior authorization from her insurance company therefore she is not able to get this. Pain has been severe and unrelenting. No nausea vomiting. She does have decreased urine output states that she is normally going to the bathroom much more frequently than she has in the last 24 hours most recently urinated 15 minutes ago very low volume she states. No fevers or chills or other urinary tract infection symptoms such as dysuria frequency urgency Related Data Home Medications Medication Instructions Recorded Confirmed ferrous sulfate 325 mg (65 mg 325 mg PO TID Supplement 04/07/17 05/18/17 iron) tablet prenat.vits,dimitris,[id number]-cznk-eqjre 1 tab PO DAILY Supplement 04/07/17 05/18/17 Previous Rx's Medication Instructions Recorded triamcinolone acetonide 0.1 % 1 applic topical TID rash #30 grams 06/01/17 topical ointment medroxyprogesterone 150 mg/mL 150 mg IM [id number] #1 mL 07/23/17 intramuscular suspension (Depo-Provera) hydrocodone 5 mg-acetaminophen 325 1 tab PO Q6H PRN pain 3 days #12 06/13/23 mg tablet tabs ibuprofen 800 mg tablet 800 mg PO TID PRN pain 7 days #20 06/13/23 tabs ondansetron 4 mg disintegrating 4 mg PO Q6H PRN nausea and 06/13/23 tablet vomiting 5 days #20 tabs tamsulosin 0.4 mg capsule (Flomax) 0.4 mg PO DAILY 7 days #7 caps 06/13/23 Allergies Allergy/AdvReac Type Severity Reaction Status Date / Time No Known Allergies Allergy Verified 06/01/17 13:49 [facility] Disclaimer: The information contained in this section may have been updated after the patient was seen, as this information can be updated by other users. Social History Smoking Status: Never smoker alcohol intake: never substance use type: denies use current occupational status: employed Travel in the last 8 weeks: None current occupational exposures/hazards: No ROS Obtained: Yes All systems reviewed & no additional complaints except as documented Physical Exam General General appearance: alert and in no apparent distress Respiratory Respiratory exam: Present normal lung sounds bilaterally Cardiovascular Cardiovascular exam: Present regular rate and normal rhythm Abdominal Exam Abdominal exam: Present soft; Absent distention or tenderness Back Exam Back exam: Absent CVA tenderness (R) or CVA tenderness (L) Neurological Exam Neurological exam: Present alert and oriented X3 Medical Decision Making Toro Inquiry Pt receiving controlled substance: No Vital Signs: 06/14/23 11:27 06/14/23 11:30 06/14/23 12:01 Temperature 98.2 F Temperature Source Oral Pulse Rate 56 L 57 L Pulse Rate [Right Radial] 63 Respiratory Rate 18 Blood Pressure 125/79 119/52 L Blood Pressure [Right Arm] 134/93 H Blood Pressure Mean [Right Arm] 106 02 Sat by Pulse Oximetry 99 99 99 Oxygen Delivery Method Room Air Room Air Room Air Lab Data Lab results reviewed: Yes I reviewed the patient's lab results. Lab Results 06/14/23 11:33: WBC 7.6, RBC 4.85, Hgb 14.4, Hct 43.4, MCV 89.4, MCH 29.6, MCHC 33.1, RDW 13.1, Plt Count 274, MPV 7.8, Neut % (Auto) 51.2, Lymph % (Auto) 30.1, [place] % (Auto) 5.6, Eos % (Auto) 10.8, Baso % (Auto) 2.3 H, Neut # (Auto) 3.9, Lymph # (Auto) 2.3, [place] # (Auto) 0.4, Eos # (Auto) 0.8 H, Baso # (Auto) 0.2, Sodium 139, Potassium 4.2, Chloride 104, Carbon Dioxide 35 H, Anion Gap 4.2 L, BUN 15, Creatinine 1.00, Estimated Creat Clear 102, Estimated GFR 64, Est GFR ( Amer) 78, Glucose 102 H, Calcium 9.4 06/14/23 12:06: Urine Color Yellow, Urine Appearance Sl cloudy, Urine pH 6.5, Ur Specific [place] 1.025, Urine Protein Negative, Urine Glucose (UA) Negative, Urine Ketones Negative, Urine Blood 1+, Urine Nitrate Negative, Urine Bilirubin Negative, Urine Urobilinogen 0.2, Ur Leukocyte Esterase Negative, Urine RBC 10-20, Urine WBC Occasional, Ur Squamous Epith Cells 5-10, Urine Bacteria 1+ 06/14/23 11:33 06/14/23 11:33 Orders (Tests/Meds): ED MEDICATIONS Discontinued Medications Generic Name Dose Route Start Last Admin Trade Name Marcos PRN Reason Stop Dose Admin Lactated Ringer's 1,000 mls @ 999 mls/hr 06/14/23 11:30 06/14/23 11:51 Lactated Ringer's 1000 Ml Bag IV 06/14/23 12:30 999 mls/hr .Q1H1M NAZARIO Administration Ketorolac Tromethamine 15 mg 06/14/23 11:25 06/14/23 11:52 Ketorolac 30mg/Ml Vial IV 06/14/23 11:26 15 mg ONCE ONE Administration Morphine Sulfate 4 mg 06/14/23 11:25 06/14/23 11:53 Morphine 4mg/Ml Syringe IV 06/14/23 11:26 4 mg ONCE ONE Administration Ondansetron HCl 4 mg 06/14/23 11:25 06/14/23 11:52 Ondansetron 4mg/2ml Vial IV 06/14/23 11:26 4 mg ONCE ONE Administration ORDERS Category Date Time Status POCUS Point of Care (ER Only) Stat Exams 06/14/23 11:16 Taken BMP [Basic Metabolic Panel] Stat Lab 06/14/23 11:33 Completed CBC w/Auto Diff [Complete Blood Count Auto Diff] Stat Lab 06/14/23 11:33 Completed UA [Urinalysis and Microscopic] Stat Lab 06/14/23 12:06 Completed Medical Decision Narrative: 33-year-old female presents today with recurrent and refractory symptoms associated with a 7 mm distal ureteral stone with hydronephrosis hydroureter. I had a discussion with her yesterday regarding this and she was sent out with a disc for CT images with advised to follow-up with a hospital where there is urologic surgery coverage and she is aware that we do not have that here. Will give her symptomatic medications including Toradol Zofran morphine IV fluids and reassess. Bedside ultrasound demonstrated ongoing moderate hydronephrosis and hydroureter. She has not had any symptomatic relief therefore still obstructed. She does have decreased urine output and her bladder is decompressed on my bedside ultrasound we will recheck her labs to make sure she does not have any obstructive uropathy or urinary tract infection. I will discuss with her transfer once her labs are back. Reassessment 1:35 PM after calling multiple hospitals and looking her labs which did not demonstrate renal insufficiency or urinary tract infection we ultimately spoke with Dr. Hernandez with the [facility]. I was able to get the patient comfortable and we discussed what would be most expeditious which would be Dr. Hernandez being able to call her tomorrow and schedule an outpatient surgical intervention. Specifically asked that the patient be n.p.o. other than water which patient is understanding and aware of. She was discharged in stable condition Dr. Hernandez took down the patient's phone number and her mother's phone number and patient information and will call her tomorrow for surgical intervention. Procedures Miscellaneous Procedure Procedure Performed: Limited renal ultrasound Indication: A focused ultrasound of the kidneys was performed to evaluate for hydronephrosis and nephrolithiasis. The ultrasound was performed with the following indications, as noted in the H&P: Flank pain Identified structures: Right kidney and bladder Findings: Moderate hydronephrosis on the right side no obvious calculus identified the bladder itself is decompressed with no obvious bilateral ureteral jets Impression: Moderate right-sided hydronephrosis due to ongoing obstructive process from known kidney stone Images were saved to permanent archive The study was technically adequate CPT: 71605-33 This study was performed by me, and I personally interpreted all images/videos. Based on my clinical judgement, these images were adequate and did not necessitate further imaging. Critical Care Critical Care Time Critical Care Time: No
[2023-06-14 11:45] LABS: Basophils # 0.2 K/mm3 (0-0.2); Basophils % 2.3 % (0.1-2.0); Eosinophils # 0.8 K/mm3 (0.0-0.4); Eosinophils % 10.8 % (0.1-12.0); Hematocrit 43.4 % (37.0-47.0); Hemoglobin 14.4 g/dL (12.2-16.2); Lymphocytes # 2.3 K/mm3 (0.7-4.5); Lymphocytes % 30.1 % (10-50); Mean Corpuscular HGB Conc 33.1 g/dL (31.8-35.4); Mean Corpuscular Hemoglobin 29.6 pg (27.0-31.2); Mean Corpuscular Volume 89.4 fl (81-99); Mean Platelet Volume 7.8 fl (7.4-10.4); Monocytes # 0.4 K/mm3 (0.1-1.0); Monocytes % 5.6 % (1.7-9.3); Neutrophils # 3.9 K/mm3 (1.8-7.8); Neutrophils % 51.2 % (37.0-80.0); Platelet Count 274 K/mm3 (142-424); Red Blood Count 4.85 M/mm3 (4.20-5.40); Red Cell Distribution Width 13.1 % (11.5-17.5); White Blood Count 7.6 K/mm3 (4.8-10.8)
[2023-06-14] MEDS: LACTATED RINGERS 1000ML 1,000 ML 999 ML IV (11:51)
[2023-06-14 11:52] LABS: Chloride 104 mmol/L (98-107); Sodium 139 mmol/L (136-145)
[2023-06-14] MEDS: ONDANSETRON 4MG/2ML VIAL 4 MG IV (11:52)
[2023-06-14] MEDS: KETOROLAC 30MG/ML VIAL 15 MG IV (11:52)
[2023-06-14 11:53] LABS: Potassium 4.2 mmoL/L (3.5-5.1)
[2023-06-14] MEDS: MORPHINE 4MG/ML SYRINGE 4 MG IV (11:53)
[2023-06-14 11:55] LABS: Anion Gap 4.2 mEq/L (5-15); Blood Urea Nitrogen 15 mg/dl (7-17); Carbon Dioxide 35 mmol/L (22.0-30.0); Creatinine Clearance Estimated 102 mL/min (50-200); Estimated Glomerular Filt Rate 64 ml/min (>60); GFR (African American) 78 ML/MIN (>60)
[2023-06-14 11:56] LABS: Calcium 9.4 mg/dl (8.4-10.2); Glucose 102 mg/dl (74-100)
[2023-06-14 12:12] LABS: Appearance,Urine SL CLOUDY (Clear); Bilirubin,Urine Negative (Negative); Blood, Urine 1+ (Negative); Color,Urine YELLOW (Yellow); Glucose,Urine (UA) Negative (Negative); Ketones,Urine Negative (Negative); Leukocyte Esterase,Urine Negative (Negative); Microscopic, Urine URINE MICROSCOPIC (MICROSCOPIC); Nitrate,Urine Negative (Negative); PH,Urine 6.5 (5.0-8.5); Protein,Urine Negative (Negative); Specific Gravity, Urine 1.025 (1.005-1.030); Urobilinogen,Urine 0.2 EU/dl (0.2)
[2023-06-14 12:29] LABS: Bacteria,Urine 1+ /lpf; WBC,Urine Occasional #/hpf (0-3)
--- NOTE | 2023-06-14 12:48 | PC.NURSE ---
called [facility] for transfer to [facility]
--- NOTE | 2023-06-14 13:00 | PC.NURSE ---
[facility] advised no urology at any of their hospitals available today.
--- NOTE | 2023-06-14 13:14 | PC.NURSE ---
[facility] called for u[facility] transfer, they will call back
--- NOTE | 2023-06-14 13:28 | PC.NURSE ---
Dr Hernandez at [facility] for Dr Eagle
== END 2023-06-14 13:43 | disposition home or self-care (01) ==
PROVIDERS: Emergency Provider Student in an Organized Health Care Education/Training Program; PCP Nurse Practitioner Family
DX: N13.2 Hydronephrosis with renal and ureteral calculous obstruction (principal); R10.31 Right lower quadrant pain; M54.59 Other low back pain; R34 Anuria and oliguria
CPT/HCPCS: 80048; 81001; 85025; 96361; 96374; 96375; 99285; J2405

== ENCOUNTER 2023-06-21 20:04 | Emergency (ER) | payer MEDICAID, SELFPAY ==
[2023-06-21 20:06] VITALS: BP 139/81; PULSE 93; RESP 16; TEMP 36.9; O2SAT 97; BMI 30.4
[2023-06-21 20:33] VITALS: PULSE 94; O2SAT 98
--- NOTE | 2023-06-21 21:22 | CT_ITS ---
PROCEDURE INFORMATION: Exam: CT Abdomen And Pelvis With Contrast Exam date and time: 06/21/2023 10:09 PM Age: 33 years old Clinical indication: Abdominal pain; Acute; Prior surgery; Surgery date: 3-7 days post-operative; Surgery type: RT uretal stent; Patient HX: Accidentally pulled stent out; Additional info: Recent R ureteral stent removed too early, pain TECHNIQUE: Imaging protocol: Computed tomography of the abdomen and pelvis with contrast. Radiation optimization: All CT scans at this facility use at least one of these dose optimization techniques: automated exposure control; mA and/or kV adjustment per patient size (includes targeted exams where dose is matched to clinical indication); or iterative reconstruction. Contrast material: ISOVUE; Contrast volume: 75 ml; Contrast route: IV; COMPARISON: CT ABDOMEN PELVIS W CON 06/13/2023 8:56 AM FINDINGS: Lungs: Medial left lower lobe consolidation. Liver: Stable subcentimeter hypodense focus within the right hepatic lobe. Gallbladder and bile ducts: Normal. No calcified stones. No ductal dilation. Pancreas: Normal. No ductal dilation. Spleen: Normal. No splenomegaly. Adrenal glands: Normal. No mass. Kidneys and ureters: Normal. No hydronephrosis. Stomach and bowel: A previous obstructing stone within the distal right ureter is no longer visualized. Normal caliber distal right ureter demonstrating urothelial enhancement. Moderate right pelvicaliectasis and proximal to mid ureterectasis. Appendix: No evidence of appendicitis. Intraperitoneal space: Unremarkable. No free air. No significant fluid collection. Vasculature: Unremarkable. No abdominal aortic aneurysm. Lymph nodes: Unremarkable. No enlarged lymph nodes. Urinary bladder: Unremarkable as visualized. Reproductive: Unremarkable as visualized. Bones/joints: Unremarkable. No acute fracture. Soft tissues: Unremarkable. IMPRESSION: 1. A previous obstructing stone within the distal right ureter is no longer visualized. Mild urothelial inflammation of a normal caliber distal ureter. Moderate right hydronephrosis and proximal to mid hydroureter. 2. Medial left lower lobe consolidation suspicious for aspiration/pneumonia.
--- NOTE | 2023-06-21 21:24 | ED_ITS ---
Discharge Plan Disposition Patient Disposition: Home, Self-Care Prescriptions Prescriptions: New azithromycin 250 mg tablet See Rx Instructions .ROUTE .COMPLEX Qty: 6 0RF Rx Instructions: For 250 mg dose pack: take 500 mg today (day 1), then 250 mg for 4 days (days 2-5) No Action triamcinolone acetonide 0.1 % ointment 1 applic TOPICAL TID Qty: 30 2RF Rx Instructions: Apply to affected area 3 times daily ferrous sulfate 325 mg (65 mg iron) tablet 325 mg PO TID prenat.vits,dimitris,afx-jcne-ghdem tablet 1 tab PO DAILY medroxyprogesterone [Depo-Provera] 150 mg/mL suspension 150 mg IM [id number] Qty: 1 3RF ibuprofen 800 mg tablet 800 mg PO TID PRN (Reason: pain) 7 Days Qty: 20 0RF hydrocodone-acetaminophen 5-325 mg tablet 1 tab PO Q6H PRN (Reason: pain) 3 Days Qty: 12 0RF tamsulosin [Flomax] 0.4 mg capsule 0.4 mg PO DAILY 7 Days Qty: 7 0RF ondansetron 4 mg tablet,disintegrating 4 mg PO Q6H PRN (Reason: nausea and vomiting) 5 Days Qty: 20 0RF Referrals Follow up/Referrals: Karie Castaneda APRN [Primary Care Provider] - See instructions Activity Restrictions/Add. Instructions Additional Instructions/Restrictions: At this time it was felt you are safe to be discharged home. If new or worsening symptoms please do not hesitate to return the emergency department. Please call and make an appointment with your urologist as discussed. Please take antibiotics as prescribed and if symptoms are worsening follow-up with your family doctor or return here for continued evaluation if you are ever struggling to breathe. Clinical Impressions Clinical Impression: History of renal stone, Pneumonia Instructions Patient Instructions: DI for Low Back Pain Discharge ED Provider: Sonu Pena General Adult HPI General Chief complaint: Back Pain/Injury Stated complaint: low grade fever, kidney stent possibly came out Time Seen by Provider: 06/21/23 20:59 Mode of Arrival: Ambulatory Source of Information: Patient Limitations: No Limitations Description of Symptoms (Recalled from ER Triage Doc. by RN): Pt presents with lower back pain post lithotripsy at [facility]. Pt states she has also been running a fever at home, temp at this time 98.5. History of Present Illness HPI narrative: Patient is a 33-year-old female with past medical history of recent right sided kidney stone status post lithotripsy with ureteral stenting 3 days ago at [facility] who presents emergency department for evaluation of fever at home and intermittent pain. Patient pulled her stent prematurely this morning (it is supposed to be removed on 06-30-2023) inadvertently and had fever on her thermometer at home causing her to present here for continued evaluation. Patient had transient right-sided pain prior to arrival which has since resolved. No other acute complaints at this time. Patient has been compliant with her cefdinir throughout the course. Related Data Home Medications Medication Instructions Recorded Confirmed ferrous sulfate 325 mg (65 mg 325 mg PO TID Supplement 04/07/17 05/18/17 iron) tablet prenat.vits,dimitris,rcg-glon-orbay 1 tab PO DAILY Supplement 04/07/17 05/18/17 Previous Rx's Medication Instructions Recorded triamcinolone acetonide 0.1 % 1 applic topical TID rash #30 grams 06/01/17 topical ointment medroxyprogesterone 150 mg/mL 150 mg IM [id number] #1 mL 07/23/17 intramuscular suspension (Depo-Provera) hydrocodone 5 mg-acetaminophen 325 1 tab PO Q6H PRN pain 3 days #12 06/13/23 mg tablet tabs ibuprofen 800 mg tablet 800 mg PO TID PRN pain 7 days #20 06/13/23 tabs ondansetron 4 mg disintegrating 4 mg PO Q6H PRN nausea and 06/13/23 tablet vomiting 5 days #20 tabs tamsulosin 0.4 mg capsule (Flomax) 0.4 mg PO DAILY 7 days #7 caps 06/13/23 azithromycin 250 mg tablet See Rx Instructions PO .COMPLEX #6 06/21/23 tabs Allergies Allergy/AdvReac Type Severity Reaction Status Date / Time No Known Allergies Allergy Verified 06/01/17 13:49 [facility] Disclaimer: The information contained in this section may have been updated after the patient was seen, as this information can be updated by other users. Social History Smoking Status: Never smoker alcohol intake: never substance use type: denies use current occupational status: employed Travel in the last 8 weeks: None current occupational exposures/hazards: No ROS Obtained: Yes Systems reviewed as appropriate & no additional complaints except as documented Physical Exam General General appearance: alert and in no apparent distress Head Head exam: atraumatic and normocephalic Eye Eye exam: Present PERRL and EOMI ENT ENT exam: Present mucous membranes moist Neck Neck exam: Present normal inspection Chest Chest inspection: Present normal inspection and symmetric chest wall rise Respiratory Respiratory exam: Present normal lung sounds bilaterally; Absent respiratory distress Cardiovascular Cardiovascular exam: Present regular rate and normal rhythm Abdominal Exam Abdominal exam: Present soft; Absent tenderness Extremities Exam Extremities exam: Present normal inspection Neurological Exam Neurological exam: Present alert Psychiatric Psychiatric exam: Present normal affect Skin Skin exam: Present warm and dry Medical Decision Making Toro Inquiry Pt receiving controlled substance: No Vital Signs: 06/21/23 20:06 06/21/23 20:33 Temperature 98.5 F Temperature Source Oral Pulse Rate 94 H Pulse Rate [Left] 93 H Respiratory Rate 16 Blood Pressure [Right Arm] 139/81 Blood Pressure Mean [Right Arm] 100 Blood Pressure Source [Right Arm] Automatic Cuff Blood Pressure Position [Right Arm] Sitting 02 Sat by Pulse Oximetry 97 98 Oxygen Delivery Method Room Air Lab Data Lab Results 06/21/23 20:40: Urine Color Yellow, Urine Appearance Clear, Urine pH 6.5, Ur Specific Jasper 1.010, Urine Protein Negative, Urine Glucose (UA) Negative, Urine Ketones Negative, Urine Blood 3+, Urine Nitrate Positive, Urine Bilirubin Negative, Urine Urobilinogen 0.2, Ur Leukocyte Esterase Negative, Urine RBC 20- 50, Urine WBC None, Ur Squamous Epith Cells Occasional, Urine Bacteria Trace 06/21/23 21:50: WBC 9.4, RBC 4.69, Hgb 13.3, Hct 41.0, MCV 87.4, MCH 28.5, MCHC 32.5, RDW 12.7, Plt Count 300, MPV 7.7, Neut % (Auto) 70.6, Lymph % (Auto) 17.4, Worth % (Auto) 3.5, Eos % (Auto) 6.7, Baso % (Auto) 1.9, Neut # (Auto) 6.6, Lymph # (Auto) 1.6, Worth # (Auto) 0.3, Eos # (Auto) 0.6 H, Baso # (Auto) 0.2, Sodium 139, Potassium 4.1, Chloride 105, Carbon Dioxide 30, Anion Gap 8.1, BUN 14, Creatinine 0.90, Estimated Creat Clear 114, Estimated GFR 73, Est GFR ( Amer) 88, Glucose 119 H, Calcium 9.4, Total Bilirubin 0.5, AST 33, ALT 32, Alkaline Phosphatase 75, Total Protein 7.4, Albumin 4.1, Globulin 3.3 H, Albumin/Globulin Ratio 1.2 06/21/23 21:50 06/21/23 21:50 Orders (Tests/Meds): ED MEDICATIONS Discontinued Medications Generic Name Dose Route Start Last Admin Trade Name Freq PRN Reason Stop Dose Admin Iopamidol 75 ml 06/21/23 22:14 06/21/23 22:15 Iopamidol-370 (76%);100ml Bottle IV 06/21/23 22:15 75 ml ONCE ONE Administration Sodium Chloride 10 ml 06/21/23 22:14 06/21/23 22:15 Sodium Chloride 0.9% 10ml Syr (Rad Only) IV 06/21/23 22:15 10 ml ONCE ONE Administration ORDERS Category Date Time Status CT abdomen pelvis w con Stat Cat Scan 06/21/23 21:22 Taken CBC w/Auto Diff [Complete Blood Count Auto Diff] Stat Lab 06/21/23 21:50 Completed CMP [Comprehensive Metabolic Panel] Stat Lab 06/21/23 21:50 Completed UA [Urinalysis and Microscopic] Stat Lab 06/21/23 20:40 Completed Medical Decision Narrative: In summary patient is a 33-year-old female past medical history described above who presents emergency department for evaluation of fever at home with premature removal of her ureteral stent in the setting of recent lithotripsy and stenting on the right side. Patient is hemodynamically stable nontoxic-appearing upon arrival, afebrile. Differential diagnosis includes ureteral injury although unlikely, urinary tract infection, among others. Patient is on cefdinir is not running a fever currently. Given this broadening of antibiotics will not be conducted. Workup will be conducted with CT imaging abdomen pelvis IV contrast, hematologic labs, urinalysis. Patient is not in any pain currently therefore pain control is not indicated. Initial workup reviewed by me, hematologic labs are nonactionable, no ROSETTA, no leukocytosis. Urinalysis interpreted by me and is nitrite positive, no white blood cells, leuk esterase negative, significant hematuria in the setting of recent kidney stone. Patient is on appropriate antibiotics and does not have significant evidence of infection with the exception of nitrite positive. Upon repeat questioning patient is taking Azo which explains her nitrite positive urinalysis. CT imaging shows mild urothelial inflammation, moderate right hydronephrosis proximal to mid hydroureter. There is incidental finding of left lower lobe consolidation suspicious for aspiration and pneumonia. Upon repeat questioning patient has had some cough since her procedure. She is being covered appropriately with cefdinir but will be broadened with azithromycin. Patient does not have any significant respiratory distress and is not requiring oxygen. Patient is appropriate for outpatient management at this time we will follow-up with her urologist. Critical Care Critical Care Time Critical Care Time: No
[2023-06-21 21:28] LABS: Microscopic, Urine URINE MICROSCOPIC (MICROSCOPIC)
[2023-06-21 22:07] LABS: Chloride 105 mmol/L (98-107); Sodium 139 mmol/L (136-145)
[2023-06-21 22:08] LABS: Appearance,Urine CLEAR (Clear); Bilirubin,Urine Negative (Negative); Blood, Urine 3+ (Negative); Color,Urine YELLOW (Yellow); Glucose,Urine (UA) Negative (Negative); Ketones,Urine Negative (Negative); Leukocyte Esterase,Urine Negative (Negative); Nitrate,Urine POSITIVE (Negative); PH,Urine 6.5 (5.0-8.5); Protein,Urine Negative (Negative); Urobilinogen,Urine 0.2 EU/dl (0.2)
[2023-06-21 22:08] LABS: Basophils # 0.2 K/mm3 (0-0.2); Basophils % 1.9 % (0.1-2.0); Eosinophils # 0.6 K/mm3 (0.0-0.4); Eosinophils % 6.7 % (0.1-12.0); Hemoglobin 13.3 g/dL (12.2-16.2); Lymphocytes # 1.6 K/mm3 (0.7-4.5); Lymphocytes % 17.4 % (10-50); Mean Corpuscular HGB Conc 32.5 g/dL (31.8-35.4); Mean Corpuscular Hemoglobin 28.5 pg (27.0-31.2); Mean Corpuscular Volume 87.4 fl (81-99); Mean Platelet Volume 7.7 fl (7.4-10.4); Monocytes # 0.3 K/mm3 (0.1-1.0); Monocytes % 3.5 % (1.7-9.3); Neutrophils # 6.6 K/mm3 (1.8-7.8); Neutrophils % 70.6 % (37.0-80.0); Platelet Count 300 K/mm3 (142-424); Potassium 4.1 mmoL/L (3.5-5.1); Red Blood Count 4.69 M/mm3 (4.20-5.40); Red Cell Distribution Width 12.7 % (11.5-17.5); White Blood Count 9.4 K/mm3 (4.8-10.8)
[2023-06-21 22:10] LABS: Alanine Aminotransferase 32 U/L (12-78); Albumin Level 4.1 g/dl (3.5-5.0); Albumin/Globulin Ratio 1.2 (1.1-1.8); Alkaline Phosphatase 75 U/L (38-126); Anion Gap 8.1 mEq/L (5-15); Aspartate Amino Transferase 33 U/L (14-36); Bilirubin,Total 0.5 mg/dl (0.2-1.3); Blood Urea Nitrogen 14 mg/dl (7-17); Carbon Dioxide 30 mmol/L (22.0-30.0); Creatinine Clearance Estimated 114 mL/min (50-200); Estimated Glomerular Filt Rate 73 ml/min (>60); GFR (African American) 88 ML/MIN (>60); Globulin 3.3 g/dL (1.3-3.2); Total Protein,Serum 7.4 g/dl (6.3-8.2)
[2023-06-21 22:11] LABS: Calcium 9.4 mg/dl (8.4-10.2); Glucose 119 mg/dl (74-100)
[2023-06-21] MEDS: SODIUM CHLORIDE 0.9% 10ML SYR (RAD ONLY) 10 ML IV (22:15)
[2023-06-21] MEDS: IOPAMIDOL-370 (76%);100ML BOTTLE 75 ML IV (22:15)
[2023-06-21 22:26] LABS: Bacteria,Urine Trace /lpf; RBC,Urine 20-50 #/hpf (0-3); Squamous Epithelial Cell,Urine Occasional #/hpf (0-5)
[2023-06-21 23:21] VITALS: BP 132/84; PULSE 87; RESP 16; TEMP 36.9; O2SAT 98
== END 2023-06-21 23:22 | disposition home or self-care (01) ==
PROVIDERS: Emergency Provider Emergency Medicine; PCP Nurse Practitioner Family
DX: J18.9 Pneumonia, unspecified organism (principal); R50.9 Fever, unspecified; R05.9 Cough, unspecified; Z87.442 Personal history of urinary calculi
CPT/HCPCS: 74177; 80053; 81001; 85025; 99284; Q9967